=== PATIENT | female | born 1955 | race Caucasian/White ===

== ENCOUNTER 2021-12-26 04:16 | Emergency (ER) | payer MEDICARE ==
[2021-12-26] MEDS ORDERED: Glycopyrrolate 0.4 MG/ 2 ML VIAL ONE (04:31)
[2021-12-26] MEDS ORDERED: Ondansetron PF 4 MG/2 ML Vial ONE (04:31)
[2021-12-26 05:11] LABS: #Eosinphils 0.1 thou/uL (0.0-0.7); #Lymphocytes 0.9 thou/uL (1.20-3.40); #Monocytes 0.9 thou/uL (0.11-0.59); %Basophils 0.2 % (0.0-1.0); %Eosinophils 0.7 % (0.0-10.0); %Lymphocytes 5.5 % (21.0-51.0); %Monocytes 5.5 % (0.0-10.0); %Neutrophils 88.2 % (42.0-75.0); Hemoglobin 12.5 g/dL (12.0-16.0); Mean Corpuscular HGB CONC 32.9 g/dL (32.0-36.0); Mean Corpuscular Hemoglobin 28.7 pg (27.0-31.0); Mean Corpuscular Volume 87.1 fL (78.0-98.0); Mean Platelet Volume 7.3 fL (7.4-10.4); Platelet Count 277 thou/uL (130-400); RBC Distribution Width 13.9 % (11.5-14.5); Red Blood Cell (RBC) Count 4.37 mill/uL (4.20-5.40)
[2021-12-26 05:39] LABS: ALT (SGPT) 14 U/L (8-55); AST (SGOT) 10 U/L (5-34); Albumin 3.6 g/dL (3.4-4.8); Alkaline Phosphatase 72 U/L (40-110); Anion Gap 14 mmol/L (10-20); BUN (Urea Nitrogen) 22 mg/dL (9.8-20.1); Bilirubin, Total 0.3 mg/dL (0.2-1.2); Calc. Creatinine Clearance 0 mL/min (70-130); Calcium 8.2 mg/dL (7.8-10.44); Carbon Dioxide 23 mmol/L (23-31); Chloride 107 mmol/L (98-107); Estimated GFR 64; Globulin 2.3 g/dL (2.4-3.5); Glucose 199 mg/dL (80-115); Lipase 62 U/L (8-78); Potassium 4.2 mmol/L (3.5-5.1); Protein, Total 5.9 g/dL (5.8-8.1); Sodium 140 mmol/L (136-145)
[2021-12-26 05:51] LABS: Bilirubin Negative (Negative); Blood, Urine Negative (Negative); Clarity Clear (Clear); Glucose, Urine (Dipstick) Negative (Negative); Ketone, Urine Negative (Negative); Leukocyte Negative (Negative); Nitrite Negative (Negative); Protein, Urine (Dipstick) Negative (Neg-Trace); Urobilinogen 0.2 mg/dL (Less than 2)
== END 2021-12-26 06:10 | disposition home or self-care (01) ==
LOC: BURERS 04:16
DX: R19.7 Diarrhea, unspecified (principal); R11.0 Nausea; R10.9 Unspecified abdominal pain; E11.9 Type 2 diabetes mellitus without complications; E78.00 Pure hypercholesterolemia, unspecified; I10 Essential (primary) hypertension; Z79.899 Other long term (current) drug therapy
CPT/HCPCS: 36415; 80053; 81003; 83690; 85025; 96361; 96374; 96375; J2405